=== PATIENT | female | born 1965 | race Caucasian/White ===

== ENCOUNTER 2020-01-21 09:16 | Emergency (ER) | payer OTHER ==
[~2020-01-21] VITALS: Ht 154.9 cm; Wt 83.2 kg
[~2020-01-21 09:16] MED LIST: COUMADIN5 MG PO; MS CONTIN15 MG PO; NORCO 10/325 TA1 TA1 PO; VENTOLIN HFA18 GM INH
[2020-01-21 09:19] VITALS: Ht 154.9 cm; Wt 83.2 kg
[2020-01-21] MEDS ORDERED: LISINOPRIL5 MG (09:21)
[2020-01-21] MEDS ORDERED: HYDROCHLOROTHIA25 MG (09:24)
[2020-01-21 09:44] LABS: BASOPHILS 0.4 % (0-2); EOSINOPHILS 1.1 % (0-7); HEMATOCRIT 46.9 % (36.0-48.0); HEMOGLOBIN 14.9 g/dL (12-16); IMMATURE GRANULOCYTES 0.3 % (0-5); LYMPHOCYTES 23.9 % (15-50); MCH 30.2 pg (26.0-34.0); MCHC 31.8 g/dL (31.0-37.0); MCV 95.1 fL (80.0-100.0); MEAN PLATELET VOLUME 12.2 fL (7.4-10.4); MONOCYTES 4.5 % (2-11); NEUTROPHILS 69.8 % (40-80); PLATELET COUNT 107 10x3/uL (130-400); RBC 4.93 10x6/uL (4.00-5.40); RDW 13.5 % (11.5-14.5); WBC 10.3 10x3/uL (4.8-10.8)
[2020-01-21 09:53] LABS: CALC OSMOLALITY 283 mosm/kg (275-300); CARBON DIOXIDE 32.1 mmol/L (21.0-32.0); CHLORIDE - SERUM 100 mmol/L (98-107); CREATININE - SERUM 1.3 mg/dL (0.6-1.3); POTASSIUM - SERUM 4.2 mmol/L (3.5-5.1); SODIUM 140 mmol/L (136-145); UREA NITROGEN 16 mg/dL (7-18); eGFR NON AFRICAN AMERICAN 45 mL/min (90-120)
[2020-01-21 10:02] LABS: GLUCOSE 169 mg/dL (74-106)
[2020-01-21 10:05] LABS: BILIRUBIN NEGATIVE (NEGATIVE); GLUCOSE NEGATIVE (NEGATIVE); KETONE NEGATIVE (NEGATIVE); NITRITE NEGATIVE (NEGATIVE); SPECIFIC GRAVITY 1.025 (1.005-1.020); UROBILINOGEN NORMAL (NORMAL)
[2020-01-21 10:06] LABS: BACTERIA MODERATE /hpf (NEGATIVE); EPITHELIAL CELLS 0-5 /hpf (0-5); RED CELLS - URINE 0-5 /hpf (0-5); WHITE CELLS - URINE 0-5 /hpf (NEGATIVE)
[2020-01-21 10:10] LABS: ALBUMIN 3.8 g/dL (3.4-5.0); ALKALINE PHOSPHATASE 85 U/L (30-120); ALT (SGPT) 25 U/L (10-68); BILIRUBIN - TOTAL 0.61 mg/dL (0.2-1.3); CKMB 1.6 U/L (0.0-3.6); CREATINE KINASE 194 UL (21-215); MAGNESIUM - SERUM 1.8 mg/dL (1.8-2.4); PROTEIN - SERUM 7.7 g/dL (6.4-8.2); TROPONIN-I < 0.017 ng/mL (0.000-0.060)
[2020-01-21] MEDS ORDERED: MECLIZINE HCL25 MG PO (10:49)
[2020-01-21] MEDS ORDERED: ZOFRAN8 MG PO (10:49)
[2020-01-21 11:00] VITALS: BP 144/74
== END 2020-01-21 11:07 | disposition home or self-care (01) ==
LOC: D.ER 09:16
PROVIDERS: Family Medicine
DX: R42 Dizziness and giddiness (principal); R11.10 Vomiting, unspecified; I10 Essential (primary) hypertension; J44.9 Chronic obstructive pulmonary disease, unspecified